=== PATIENT | female | born 1990 | race Caucasian/White ===

== ENCOUNTER 2022-12-11 13:28 | Emergency (ER) | payer OTHER ==
[~2022-12-11] VITALS: Ht 154.9 cm; Wt 61.2 kg
[2022-12-11 14:02] VITALS: BP 128/74; TEMP 98.2; O2SAT 98
== END 2022-12-11 14:42 | disposition home or self-care (01) ==
LOC: ER 13:28
DX: J02.9 Acute pharyngitis, unspecified (principal)
CPT/HCPCS: 86403; A4606; A4663